=== PATIENT | male | born 1945 | race Hispanic/Latino ===

== ENCOUNTER 2016-10-28 09:39 | Observation (INO) | payer OTHER ==
[~2016-10-28] VITALS: Ht 182.9 cm; Wt 83.0 kg
[~2016-10-28 09:39] MED LIST: CARBAMAZEPIN200 MG PO; LISINOPRIL
--- NOTE | 2016-10-28 10:00 | NUR ---
PT TO ROOM FOR TREATMENT WITH A STEADY GAIT
[2016-10-28] MEDS ORDERED: AMLODIPINE5 MG PO (10:02)
[2016-10-28] MEDS ORDERED: LISINOP/HCTZ1 TA1 PO (10:02)
[2016-10-28 10:47] LABS: HEMATOCRIT 46.1 % (39.0-50.0); IMMATURE GRANULOCYTES 0.3 % (0.0-1.0); MEAN CORPUSCULAR HGB 30.9 pG CALC (26.0-32.0); MEAN CORPUSCULAR HGB CONC 34.7 g/L CALC (32.0-36.0); NEUT# 13.9 thou/uL (1.82-7.42); RED BLOOD COUNT 5.18 mill/uL (4.70-6.10); RED CELL DISTRI WIDTH 13.1 % (11.5-15.5)
[2016-10-28 11:03] LABS: ALBUMIN 4.4 g/dL (3.2-5.0); ALKALINE PHOSPHATASE 104 u/l (38-126); ANION GAP 14 (6-22 (CALC)); BILIRUBIN, TOTAL 0.4 mg/dL (0.0-1.4); BUN 18 mg/dL (8-23); BUN/CREATININE RATIO 18 (12-20 (CALC)); CALCIUM 9.3 mg/dL (8.4-10.2); CARBON DIOXIDE 28 mmol/l (22-30); CHLORIDE 103 mmol/l (95-108); CREATININE 1.1 mg/dL (0.7-1.3); GFR > 60 ML/MIN (>=60 (CALC)); GFR FOR AFR.AMER. > 60 ML/MIN (>=60 (CALC)); GLUCOSE 120 mg/dL (82-115); SGOT/AST 41 u/l (19-48); SGPT/ALT 40 u/l (11-66); SODIUM 141 mmol/l (137-146); TOTAL PROTEIN 8.2 g/dL (6.3-8.2)
[2016-10-28 11:33] LABS: MYOGLOBIN 652 ng/mL (0 - 121)
--- NOTE | 2016-10-28 12:02 | NUR ---
EDP HAS SUTURED CHIN LACERATION, WELL TOLERATED BY PT. WOUNDS COVERED APPROPRIATELY. FAMILY AT BEDSIDE.
--- NOTE | 2016-10-28 13:07 | NUR ---
PT AND FAMILY AWARE OF PENDING ADMISSION.
[2016-10-28 13:40] LABS: BARBITURATES NEGATIVE (NEGATIVE); COCAINE NEGATIVE (NEGATIVE); METHADONE NEGATIVE (NEGATIVE); OXCYCODONE NEGATIVE (NEGATIVE); TETRAHYDROCANNABIONOL NEGATIVE (NEGATIVE); TRICYLIC ANTIDEPRESSANTS NEGATIVE (NEGATIVE)
--- NOTE | 2016-10-28 14:15 | NUR ---
PT ARRIVED FROM ER VIA STRETCHER ACCOMPANIED BY STAFF. IV SITE IS FREE FROM REDNESS OR EDEMA.
--- NOTE | 2016-10-28 14:34 | NUR ---
PT TAKEN TO FLOOR, REPORT WAS TO
--- NOTE | 2016-10-28 15:00 | NUR ---
ASSESSMENT IS COMPLETED: PT IS UPPER SORBIAN SPEAKING MOSTLY UNDERSTANDS SOME WORDS. OTHERWISE THE ANSWER IS " I DON'T REMEMBER". FACE HAS SOME SWELLING NOTED. BANDAID ON CHIN IS CDI. CONTINUE TO OSBERVE AND MONITOR.
[2016-10-28 15:19] VITALS: BP 124/71
[2016-10-28 16:00] VITALS: BP 126/66
--- NOTE | 2016-10-28 18:21 | NUR ---
PT IS RELAXING IN BED WITH NO DISTRESS NOTED. IV SITE IS FREE FROM REDNES OR EDEMA
[2016-10-28 19:00] VITALS: BP 103/62
--- NOTE | 2016-10-28 19:00 | NUR ---
PATIENT RESTING IN BED. NO ACUTE DISTRESS NOTED. REPORT RECEIVED FROM OFF GOING NURSE.
[2016-10-28 19:18] VITALS: BP 117/73
[2016-10-28 23:43] VITALS: BP 103/62
--- NOTE | 2016-10-29 | NUR ---
PATIENT RESTING COMFORTABLY AT THIS TIME. NO ACUTE DISTRESS NOTED.
[2016-10-29 03:35] VITALS: BP 94/61
--- NOTE | 2016-10-29 04:00 | NUR ---
PATIENT RESTED WEL DURING THE NIGHT NO ACUTE DISTRESS NOTED.
[2016-10-29 05:35] LABS: HEMOGLOBIN 14.3 g/dl (14.0-18.0); IMMATURE GRANULOCYTES 0.2 % (0.0-1.0); MEAN CELL VOLUME 89.6 fL CALC (80.0-100.0); MEAN CORPUSCULAR HGB 30.5 pG CALC (26.0-32.0); NEUT# 4.3 thou/uL (1.82-7.42); RED BLOOD COUNT 4.69 mill/uL (4.70-6.10); RED CELL DISTRI WIDTH 13.2 % (11.5-15.5)
[2016-10-29 06:01] LABS: ANION GAP 13 (6-22 (CALC)); BUN 17 mg/dL (8-23); BUN/CREATININE RATIO 18 (12-20 (CALC)); CALCIUM 8.8 mg/dL (8.4-10.2); CARBON DIOXIDE 25 mmol/l (22-30); CHLORIDE 106 mmol/l (95-108); CREATININE 0.9 mg/dL (0.7-1.3); GFR > 60 ML/MIN (>=60 (CALC)); GFR FOR AFR.AMER. > 60 ML/MIN (>=60 (CALC)); GLUCOSE 101 mg/dL (82-115); POTASSIUM 4.1 mmol/l (3.5-5.1); SODIUM 140 mmol/l (137-146)
--- NOTE | 2016-10-29 07:00 | NUR ---
RECEIVED BEDSIDE REPORT FROM MARIELY SIMMONS. PT RESTING ON LEFT SIDE WITH EYES CLOSED. RESPS EVEN AND UNLABORED ON ROOM AIR, TELE MONITOR IN PLACE. DENEIS PAIN OR DISCOMFORT. PLAN OF CARE DISCUSSED. SAFETY PRECAUTIONS REINFORCED. BED PADDED FOR SEIZURE PRECAUTIONS. BED IN LOWEST POSITION WITH WHEELS LOCKED. CALL LIGHT WITHIN REACH. WILL CONTINUE TO MONITOR.
--- NOTE | 2016-10-29 08:25 | NUR ---
DR WILSON IN TO SEE PT WITH MANAGER HIGHW[address], NEW ORDERS RECEIVED.
[2016-10-29 08:33] VITALS: BP 110/68
[2016-10-29 08:38] VITALS: BP 110/68
[2016-10-29] MEDS ORDERED: LEVETIRACETAM500 MG PO (10:03)
--- NOTE | 2016-10-29 13:18 | NUR ---
RESTING IN SUPINE POSITION. RESPS EVEN AND UNLABORED ON ROOM AIR, TELE MONITOR IN PLACE. SUTURES TO CHIN CDI. DENIES PAIN OR DISCOMFORT. ALL NEEDS MET. CALL LIGHT WITHIN REACH. WILL CONTINUE TO MONITOR.
--- NOTE | 2016-10-29 14:40 | NUR ---
Discharge instructions given. Patient verbalizes understanding of same. Discharged in stable condition via Wheelchair to Home with family. All belongings sent with pt.
== END 2016-10-29 14:00 | disposition home or self-care (01) | DRG 101 ==
LOC: ENPENDDIS → ED 09:39 → ED-I 11:33 → ED 12:44 → MS2 12:45
PROVIDERS: Emergency Medicine; ADMIT Internal Medicine; ATTEND Internal Medicine
PROC: 0HQ1XZZ Repair Face Skin, External Approach (ICD-10-PCS; principal; 2016-10-28)
DX: G40.409 Other generalized epilepsy and epileptic syndromes, not intractable, without status epilepticus (principal); I10 Essential (primary) hypertension; S01.81XA Laceration without foreign body of other part of head, initial encounter; E78.5 Hyperlipidemia, unspecified; W18.39XA Other fall on same level, initial encounter; Y92.009 Unspecified place in unspecified non-institutional (private) residence as the place of occurrence of the external cause; Z79.899 Other long term (current) drug therapy
CPT/HCPCS: G0378; J1650

== ENCOUNTER 2017-03-04 08:57 | Emergency (ER) | payer SELFPAY ==
[~2017-03-04] VITALS: Ht 172.7 cm; Wt 84.0 kg
[~2017-03-04 08:57] MED LIST changes: +AMLODIPINE5 MG PO; +LEVETIRACETAM500 MG PO; +LISINOP/HCTZ1 TA1 PO
[2017-03-04 09:26] LABS: HEMATOCRIT 43.8 % (39.0-50.0); HEMOGLOBIN 15.1 g/dl (14.0-18.0); IMMATURE GRANULOCYTES 0.5 % (0.0-1.0); MEAN CELL VOLUME 88.5 fL CALC (80.0-100.0); MEAN CORPUSCULAR HGB 30.5 pG CALC (26.0-32.0); MEAN CORPUSCULAR HGB CONC 34.5 g/L CALC (32.0-36.0); NEUT# 6.52 thou/uL (1.82-7.42); RED BLOOD COUNT 4.95 mill/uL (4.70-6.10); RED CELL DISTRI WIDTH 13.5 % (11.5-15.5)
[2017-03-04 09:45] LABS: ALBUMIN 4.5 g/dL (3.2-5.0); ALKALINE PHOSPHATASE 108 u/l (38-126); ANION GAP 19 (6-22 (CALC)); BILIRUBIN, TOTAL 0.4 mg/dL (0.0-1.4); BUN 17 mg/dL (8-23); BUN/CREATININE RATIO 18 (12-20 (CALC)); CALCIUM 9.5 mg/dL (8.4-10.2); CARBON DIOXIDE 18 mmol/l (22-30); CHLORIDE 104 mmol/l (95-108); ETHYL ALCOHOL 0 mg/dl (0-30); GFR > 60 ML/MIN (>=60 (CALC)); GFR FOR AFR.AMER. > 60 ML/MIN (>=60 (CALC)); GLUCOSE 147 mg/dL (82-115); SGOT/AST 24 u/l (19-48); SGPT/ALT 35 u/l (11-66); SODIUM 137 mmol/l (137-146); TOTAL PROTEIN 7.5 g/dL (6.3-8.2)
[2017-03-04 09:55] LABS: MYOGLOBIN 189 ng/mL (0 - 121)
[2017-03-04 10:10] LABS: URINE BILIRUBIN - DIPSTICK NEGATIVE (NEGATIVE); URINE BLOOD DIPSTICK TRACE-INTACT (NEGATIVE); URINE CLARITY CLEAR; URINE COLOR YELLOW; URINE GLUCOSE - DIPSTICK NEGATIVE (NEGATIVE); URINE KETONE NEGATIVE (NEGATIVE); URINE LEUK ESTERASE NEGATIVE (NEGATIVE); URINE NITRITE - DIPSTICK NEGATIVE (Negative); URINE PROTEIN - DIPSTICK 30 mg/dL (NEG-TRACE); URINE SPECIFIC GRAVITY 1.025; URINE UROBILINOGEN - DIPSTICK 0.2 E.U./dL (0.2)
[2017-03-04 10:16] LABS: BARBITURATES NEGATIVE (NEGATIVE); COCAINE NEGATIVE (NEGATIVE); METHADONE NEGATIVE (NEGATIVE); OXCYCODONE NEGATIVE (NEGATIVE); TETRAHYDROCANNABIONOL NEGATIVE (NEGATIVE); TRICYLIC ANTIDEPRESSANTS NEGATIVE (NEGATIVE)
[2017-03-04 10:37] LABS: URINE SQUAMOUS EPITHELIAL CELL FEW EPI/hpf (0-FEW)
[2017-03-04 14:13] VITALS: BP 114/49
== END 2017-03-04 14:14 | disposition home or self-care (01) | DRG 101 ==
LOC: ED 08:57
PROVIDERS: Emergency Medicine
DX: G40.909 Epilepsy, unspecified, not intractable, without status epilepticus (principal); R00.0 Tachycardia, unspecified
CPT/HCPCS: J1953

== ENCOUNTER 2017-04-29 07:12 | Emergency (ER) | payer MEDICAID ==
[~2017-04-29] VITALS: Ht 172.7 cm; Wt 90.0 kg
[2017-04-29 08:04] LABS: HEMATOCRIT 42.9 % (39.0-50.0); HEMOGLOBIN 14.9 g/dl (14.0-18.0); IMMATURE GRANULOCYTES 0.4 % (0.0-1.0); MEAN CELL VOLUME 87.9 fL CALC (80.0-100.0); MEAN CORPUSCULAR HGB 30.5 pG CALC (26.0-32.0); MEAN CORPUSCULAR HGB CONC 34.7 g/L CALC (32.0-36.0); NEUT# 9.73 thou/uL (1.82-7.42); RED BLOOD COUNT 4.88 mill/uL (4.70-6.10); RED CELL DISTRI WIDTH 13.8 % (11.5-15.5)
[2017-04-29 08:23] LABS: ALBUMIN 4.2 g/dL (3.2-5.0); ALKALINE PHOSPHATASE 111 u/l (38-126); ANION GAP 16 (6-22 (CALC)); BILIRUBIN, TOTAL 0.7 mg/dL (0.0-1.4); BUN 16 mg/dL (8-23); BUN/CREATININE RATIO 16 (12-20 (CALC)); CALCIUM 9.1 mg/dL (8.4-10.2); CARBON DIOXIDE 22 mmol/l (22-30); CHLORIDE 106 mmol/l (95-108); ETHYL ALCOHOL 0 mg/dl (0-30); GFR > 60 ML/MIN (>=60 (CALC)); GFR FOR AFR.AMER. > 60 ML/MIN (>=60 (CALC)); GLUCOSE 130 mg/dL (82-115); POTASSIUM 3.6 mmol/l (3.5-5.1); SGOT/AST 23 u/l (19-48); SGPT/ALT 33 u/l (11-66); SODIUM 141 mmol/l (137-146); TOTAL PROTEIN 7.7 g/dL (6.3-8.2)
[2017-04-29 08:34] LABS: MYOGLOBIN 279 ng/mL (0 - 121)
[2017-04-29 10:29] LABS: URINE BILIRUBIN - DIPSTICK NEGATIVE (NEGATIVE); URINE BLOOD DIPSTICK NEGATIVE (NEGATIVE); URINE CLARITY CLEAR; URINE COLOR YELLOW; URINE GLUCOSE - DIPSTICK NEGATIVE (NEGATIVE); URINE KETONE NEGATIVE (NEGATIVE); URINE LEUK ESTERASE NEGATIVE (NEGATIVE); URINE NITRITE - DIPSTICK NEGATIVE (Negative); URINE PROTEIN - DIPSTICK NEGATIVE (NEG-TRACE); URINE SPECIFIC GRAVITY >=1.030; URINE UROBILINOGEN - DIPSTICK 0.2 E.U./dL (0.2)
[2017-04-29 10:39] LABS: BARBITURATES NEGATIVE (NEGATIVE); COCAINE NEGATIVE (NEGATIVE); METHADONE NEGATIVE (NEGATIVE); OXCYCODONE NEGATIVE (NEGATIVE); TETRAHYDROCANNABIONOL NEGATIVE (NEGATIVE); TRICYLIC ANTIDEPRESSANTS NEGATIVE (NEGATIVE)
[2017-04-29 11:33] VITALS: BP 129/67
== END 2017-04-29 11:25 | disposition home or self-care (01) | DRG 101 ==
LOC: ED 07:12
PROVIDERS: Emergency Medicine
DX: G40.909 Epilepsy, unspecified, not intractable, without status epilepticus (principal); I10 Essential (primary) hypertension; E78.5 Hyperlipidemia, unspecified; Z91.14 Patient's other noncompliance with medication regimen
CPT/HCPCS: J1953

== ENCOUNTER 2017-06-07 08:22 | Emergency (ER) | payer SELFPAY ==
[~2017-06-07] VITALS: Ht 172.7 cm; Wt 110.0 kg
[2017-06-07 09:06] LABS: HEMOGLOBIN 15.8 g/dl (14.0-18.0); IMMATURE GRANULOCYTES 0.4 % (0.0-1.0); MEAN CELL VOLUME 88.8 fL CALC (80.0-100.0); MEAN CORPUSCULAR HGB 30.5 pG CALC (26.0-32.0); MEAN CORPUSCULAR HGB CONC 34.3 g/L CALC (32.0-36.0); NEUT# 10.28 thou/uL (1.82-7.42); RED BLOOD COUNT 5.18 mill/uL (4.70-6.10); RED CELL DISTRI WIDTH 12.6 % (11.5-15.5)
[2017-06-07 09:46] LABS: ALBUMIN 4.2 g/dL (3.2-5.0); ALKALINE PHOSPHATASE 120 u/l (38-126); ANION GAP 15 (6-22 (CALC)); BILIRUBIN, TOTAL 0.5 mg/dL (0.0-1.4); BUN 14 mg/dL (8-23); BUN/CREATININE RATIO 16 (12-20 (CALC)); CALCIUM 9.6 mg/dL (8.4-10.2); CARBON DIOXIDE 23 mmol/l (22-30); CHLORIDE 107 mmol/l (95-108); CREATININE 0.9 mg/dL (0.7-1.3); GFR > 60 ML/MIN (>=60 (CALC)); GFR FOR AFR.AMER. > 60 ML/MIN (>=60 (CALC)); GLUCOSE 133 mg/dL (82-115); POTASSIUM 4.2 mmol/l (3.5-5.1); SGOT/AST 22 u/l (19-48); SGPT/ALT 32 u/l (11-66); SODIUM 140 mmol/l (137-146); TOTAL PROTEIN 7.2 g/dL (6.3-8.2)
[2017-06-07] MEDS ORDERED: KEPPRA1000 MG PO (09:54)
[2017-06-07 10:05] VITALS: BP 150/92
== END 2017-06-07 10:02 | disposition home or self-care (01) | DRG 101 ==
LOC: ED 08:22
PROVIDERS: Emergency Medicine
DX: G40.909 Epilepsy, unspecified, not intractable, without status epilepticus (principal); I10 Essential (primary) hypertension; E78.5 Hyperlipidemia, unspecified
CPT/HCPCS: J1953

== ENCOUNTER 2017-07-16 13:49 | Observation (INO) | payer SELFPAY ==
[~2017-07-16] VITALS: Ht 172.7 cm; Wt 81.5 kg
[~2017-07-16 13:49] MED LIST changes: +KEPPRA1000 MG PO
--- NOTE | 2017-07-16 14:05 | NUR ---
PT TO ROOM VIA WC STOOD AND TRANSFERRED TO STRETCHER . MONITORING EQUIPMENT EXPLAINED AND APPLIED RAMIRO AT BEDSIDE
[2017-07-16] MEDS ORDERED: LISINOPRIL10 MG PO (14:06)
[2017-07-16] MEDS ORDERED: HYDROCHLOROT25 MG PO (14:06)
--- NOTE | 2017-07-16 14:45 | NUR ---
PT RESTING FAMILY MEMBER REMAINS AT BEDSIDE, OFFERS NO NEW COMPLAINTS,
[2017-07-16 14:49] LABS: HEMATOCRIT 47.5 % (39.0-50.0); HEMOGLOBIN 16.4 g/dl (14.0-18.0); IMMATURE GRANULOCYTES 0.5 % (0.0-1.0); MEAN CELL VOLUME 85.7 fL CALC (80.0-100.0); MEAN CORPUSCULAR HGB 29.6 pG CALC (26.0-32.0); MEAN CORPUSCULAR HGB CONC 34.5 g/L CALC (32.0-36.0); NEUT# 14.05 thou/uL (1.82-7.42); RED BLOOD COUNT 5.54 mill/uL (4.70-6.10); RED CELL DISTRI WIDTH 12.4 % (11.5-15.5)
[2017-07-16 15:08] LABS: ALBUMIN 4.5 g/dL (3.2-5.0); ALKALINE PHOSPHATASE 128 u/l (38-126); ANION GAP 21 (6-22 (CALC)); BILIRUBIN, TOTAL 0.3 mg/dL (0.0-1.4); BUN 22 mg/dL (8-23); BUN/CREATININE RATIO 21 (12-20 (CALC)); CALCIUM 10.1 mg/dL (8.4-10.2); CARBON DIOXIDE 19 mmol/l (22-30); CHLORIDE 104 mmol/l (95-108); CREATININE 1.1 mg/dL (0.7-1.3); GFR > 60 ML/MIN (>=60 (CALC)); GFR FOR AFR.AMER. > 60 ML/MIN (>=60 (CALC)); GLUCOSE 128 mg/dL (82-115); POTASSIUM 3.9 mmol/l (3.5-5.1); SGOT/AST 23 u/l (19-48); SGPT/ALT 30 u/l (11-66); SODIUM 141 mmol/l (137-146); TOTAL PROTEIN 7.9 g/dL (6.3-8.2)
--- NOTE | 2017-07-16 15:36 | NUR ---
PT RESTING, NO NEW COMPLAINTS, CALL PEREZ WITHIN REACH, FAMILY MEMBER REMAINS AT BEDSIDE
--- NOTE | 2017-07-16 16:00 | NUR ---
PT WAS LAYING IN BED AND HAD WHAT APPEARED TO BE A SEIZURE. TIGHTNESS OF THE LEGS, AND ARMS, REDNESS ON THE CHEST. HRT RATE WENT TO 160 BP 147/74. PT BIT HIS TONGUE AND STARTED TO BLEED. PHYSICIAN AND ER NURSES CAME TO THE ROOM, AND MEDICATION WAS ADMINISTERED. AT 1605. PT WAS BEING ASSISTED INTO A GOWN AND BECAME A LITTLE COMBATIVE. FAMILY IN THE ROOM STATED ' HE BECOMES CONFUSED AFTER THIS KIND OF EPISODES".
--- NOTE | 2017-07-16 16:11 | NUR ---
PT GIVEN 1 MG OF ATIVAN IV ORDERED BY MD FOR SEIZURE
--- NOTE | 2017-07-16 16:45 | NUR ---
MEDICATED WITH ATIVAN AGAIN ORDERED, PT REMAINS CONFUSED (FAMILY STATES THAT IS NORMAL FOR HIM AFTER A SEIZURE) TELE CONTINUES READING TACHYCARDIC RATE 110-130, MD AWARE, FAMILY BACK AT BEDSIDE
--- NOTE | 2017-07-16 16:51 | NUR ---
FAMILY GONE AT THIS TIME WILL RETURN, AWARE OF POTENTIAL ADMISSION. NO FURTHER SEIZURE ACTIVITY NOTED AT THIS TIME
--- NOTE | 2017-07-16 17:08 | NUR ---
AWARE OF REPEAT LACTIC ACID LEVEL
--- NOTE | 2017-07-16 17:24 | NUR ---
IVF AND DILANTIN IV INFUSING ORDERED, PT RESTING WITHEYES CLOSED, CALL PEREZ WITHIN REACH,
--- NOTE | 2017-07-16 17:35 | NUR ---
MD AWARE OF ELEVATED LACTIC ACID X2 AND RELATES IT TO SEIZURE ACTIVITY AT HOME AND AGAIN AFTER ARRIVAL, IVF GIVEN ORDERED.
--- NOTE | 2017-07-16 18:02 | NUR ---
PT DOZING, HR IMPROVED RATE 80'S BP REMAINS STABLE AND IV DILANTIN CONTINUES ORDERED W/O INCIDENT WELL IVF, CALL PEREZ WITHIN REACH, CONTACTING FOR ADMISSION
[2017-07-16 19:35] LABS: URINE BILIRUBIN - DIPSTICK NEGATIVE (NEGATIVE); URINE BLOOD DIPSTICK TRACE-INTACT (NEGATIVE); URINE COLOR YELLOW; URINE GLUCOSE - DIPSTICK NEGATIVE (NEGATIVE); URINE KETONE NEGATIVE (NEGATIVE); URINE LEUK ESTERASE NEGATIVE (NEGATIVE); URINE NITRITE - DIPSTICK NEGATIVE (Negative); URINE PROTEIN - DIPSTICK NEGATIVE (NEG-TRACE); URINE SPECIFIC GRAVITY 1.025; URINE UROBILINOGEN - DIPSTICK 0.2 E.U./dL (0.2)
--- NOTE | 2017-07-16 19:35 | NUR ---
REPORT TO MARTINE CANTU.
[2017-07-16 19:38] LABS: URINE CLARITY CLEAR
--- NOTE | 2017-07-16 19:44 | NUR ---
PT. UP TO MED/SURG AT THIS TIME.
--- NOTE | 2017-07-16 19:46 | NUR ---
PT TRANSFERRED TO FLOOR VIA STRETCHER ACCOMPANIED BY IRIS ROSENBAUM AND FAMILY;PT AMBULATED TO BEDSIDE WITH WEAK GAIT;PT VOIDED 200CC OF CLEAR/YELLOW URINE;PT ORIENTED TO ROOM AND CALL LIGHT SYSTEM AND VERBALIZES UNDERSTANDING;PT NOTED TO BE MOSTLY [place] SPEAKING BUT GRANDSON AT BEDSIDE TO TRANSLATE;PT REPORTS 3 SEIZURES TODAY TOTAL AND DENIES STOPPING OR CHANGING HIS CURRENT HOME MEDICATIONS;SEIZURE PRECAUTIONS IN PLACE;VS AND WT OBTAINED;#20G TO LAC INFUSING IV KEPPRA AT THIS TIME,SITE APPEARS HEALTHY AND FREE FROM REDDNESS;RESPIRATIONS EVEN AND UNLABORED ON RA;PT A&O X2,PT IS ABLE TO PORVIDED HIS ,NAME AND PLACE;PT RE-ORIENTED TO TIME;TELE MONITOR IN PLACE;SKIN INTACT;PT DENIES ANY PAIN AND IS EDUCATED ON PAIN SCALE AND REPORTING;FALL PRECAUTIONS IN PLACE WITH BED IN THE LOWEST AND CALL LIGHT IN REACH;WILL CONTINUE TO MONITOR
[2017-07-16 20:00] VITALS: BP 128/72
--- NOTE | 2017-07-16 21:30 | NUR ---
NORMA JUNIOR ([facility]) #[phone]
--- NOTE | 2017-07-16 21:30 | NUR ---
PT RESTING QUIETLY IN SEMI FOWLERS POSITION;WOKE PT TO OBTAIN VS;PT VOICES NO COMPLAINTS OF PAIN OR DISCOMFORTS;SEIZURE PRECAUTIONS IN PLACE;TELE MONITOR NOTED;CALL LIGHT IN REACH;WILL CONTINUE TO MONITOR
[2017-07-17 00:18] VITALS: BP 111/70
[2017-07-17 05:14] VITALS: BP 97/62
--- NOTE | 2017-07-17 05:15 | NUR ---
PT APPEARS TO BE SLEEPING WITH EYES CLOSED;PT AWAKES TO VERBAL STIMULI;PT VOICES NO COMPLAINTS OR CONCERNS AT THIS TIME;RESPIRATIONS EVEN AND UNLABORED ON RA;VS OBTAINED;SEIZURE PRECAUTIONS REINFORCED;TELE MONITOR AND FALL PRECAUTIONS IN PLACE;PT EDUCATED TO CALL FOR ASSISTANCE IF NEEDED;CALL LIGHT IN REACH;WILL CONTINUE TO MONITOR
[2017-07-17 06:39] LABS: HEMATOCRIT 42.6 % (39.0-50.0); HEMOGLOBIN 14.9 g/dl (14.0-18.0); MEAN CELL VOLUME 86.1 fL CALC (80.0-100.0); MEAN CORPUSCULAR HGB 30.1 pG CALC (26.0-32.0); RED BLOOD COUNT 4.95 mill/uL (4.70-6.10); RED CELL DISTRI WIDTH 12.6 % (11.5-15.5)
[2017-07-17 07:00] LABS: ANION GAP 15 (6-22 (CALC)); BUN 17 mg/dL (8-23); BUN/CREATININE RATIO 16 (12-20 (CALC)); CALCIUM 9.2 mg/dL (8.4-10.2); CARBON DIOXIDE 23 mmol/l (22-30); CHLORIDE 107 mmol/l (95-108); CREATININE 1.1 mg/dL (0.7-1.3); GFR > 60 ML/MIN (>=60 (CALC)); GFR FOR AFR.AMER. > 60 ML/MIN (>=60 (CALC)); GLUCOSE 107 mg/dL (82-115); POTASSIUM 3.7 mmol/l (3.5-5.1); SODIUM 141 mmol/l (137-146)
[2017-07-17 07:36] VITALS: BP 99/57
--- NOTE | 2017-07-17 10:20 | NUR ---
PT SITTING UP IN THE CHAIR. NO DISTRESS NOTED. IV SITE IS FREE FROM REDNESS OR EDEMA. CONTINUE TO OBSERVE AND MONITOR. ASSESSMENT IS COMPLETED: PT CONTINUES WITH JOSÉ MIGUEL FACE .
[2017-07-17] MEDS ORDERED: KEPPRA750 M2 PO (11:12)
[2017-07-17 11:27] VITALS: BP 104/64
--- NOTE | 2017-07-17 12:30 | NUR ---
PT REMAINS SITTING UP IN THE CHAIR. NO DISTRESS NOTED. IV SITE IS FREE FROM REDNESS OR EDEMA. CONITNUE TO OBSERVE AND MONITOR,
--- NOTE | 2017-07-17 13:10 | NUR ---
IV SITE DISCONITNUED CATHETER INTACT NO REDNESS OR EDEMA. DISCHARGE INSTRUCTIONS GIVEN AND VERBALIZED UNDERSTOOD. Discharge instructions given. Patient verbalizes understanding of same. Discharged in stable condition via Wheelchair to Home with family. All belongings sent with pt.
== END 2017-07-17 13:17 | disposition home or self-care (01) | DRG 101 ==
LOC: ED 13:49 → ED-I 17:51 → ED 18:18 → MS2 18:19
PROVIDERS: Emergency Medicine; ADMIT Internal Medicine; ATTEND Internal Medicine
DX: G40.409 Other generalized epilepsy and epileptic syndromes, not intractable, without status epilepticus (principal); E78.5 Hyperlipidemia, unspecified; I10 Essential (primary) hypertension
CPT/HCPCS: G0378; J1953; J2060

== ENCOUNTER 2017-08-29 17:28 | Emergency (ER) | payer SELFPAY ==
[~2017-08-29] VITALS: Ht 172.7 cm; Wt 80.0 kg
[~2017-08-29 17:28] MED LIST changes: +HYDROCHLOROT25 MG PO; +KEPPRA750 M2 PO; +LISINOPRIL10 MG PO
[2017-08-29 17:55] LABS: HEMATOCRIT 46.3 % (39.0-50.0); HEMOGLOBIN 15.7 g/dl (14.0-18.0); IMMATURE GRANULOCYTES 0.4 % (0.0-1.0); MEAN CELL VOLUME 86.2 fL CALC (80.0-100.0); MEAN CORPUSCULAR HGB 29.2 pG CALC (26.0-32.0); MEAN CORPUSCULAR HGB CONC 33.9 g/L CALC (32.0-36.0); NEUT# 8.97 thou/uL (1.82-7.42); RED BLOOD COUNT 5.37 mill/uL (4.70-6.10); RED CELL DISTRI WIDTH 13.4 % (11.5-15.5)
[2017-08-29] MEDS ORDERED: KEPPRA1000 MG PO (18:02)
[2017-08-29 18:14] LABS: ALBUMIN 4.4 g/dL (3.2-5.0); BILIRUBIN, TOTAL 0.5 mg/dL (0.0-1.4); CALCIUM 10.3 mg/dL (8.4-10.2); CREATININE 1.4 mg/dL (0.7-1.3); POTASSIUM 4.3 mmol/l (3.5-5.1); TOTAL PROTEIN 7.4 g/dL (6.3-8.2)
[2017-08-29 19:35] VITALS: BP 122/74
== END 2017-08-29 19:37 | disposition home or self-care (01) | DRG 101 ==
LOC: ED 17:28
PROVIDERS: Emergency Medicine
DX: G40.909 Epilepsy, unspecified, not intractable, without status epilepticus (principal); S01.111A Laceration without foreign body of right eyelid and periocular area, initial encounter; X58.XXXA Exposure to other specified factors, initial encounter
CPT/HCPCS: J1953; J2060

== ENCOUNTER 2017-10-13 08:35 | Emergency (ER) | payer OTHER ==
[~2017-10-13] VITALS: Ht 172.7 cm; Wt 70.0 kg
[2017-10-13] MEDS ORDERED: KLONOPIN0.5 M1 PO (08:56)
[2017-10-13 09:06] LABS: HEMATOCRIT 44.6 % (39.0-50.0); HEMOGLOBIN 15.3 g/dl (14.0-18.0); IMMATURE GRANULOCYTES 0.4 % (0.0-1.0); MEAN CELL VOLUME 86.6 fL CALC (80.0-100.0); MEAN CORPUSCULAR HGB 29.7 pG CALC (26.0-32.0); MEAN CORPUSCULAR HGB CONC 34.3 g/L CALC (32.0-36.0); NEUT# 10.77 thou/uL (1.82-7.42); RED BLOOD COUNT 5.15 mill/uL (4.70-6.10)
[2017-10-13 09:28] LABS: ALBUMIN 4.1 g/dL (3.2-5.0); ALKALINE PHOSPHATASE 131 u/l (38-126); ANION GAP 15 (6-22 (CALC)); BILIRUBIN, TOTAL 0.3 mg/dL (0.0-1.4); BUN 18 mg/dL (8-23); BUN/CREATININE RATIO 14 (12-20 (CALC)); CARBON DIOXIDE 25 mmol/l (22-30); CHLORIDE 106 mmol/l (95-108); CREATININE 1.2 mg/dL (0.7-1.3); ETHYL ALCOHOL 0 mg/dl (0-30); GFR 59 ML/MIN (>=60 (CALC)); GFR FOR AFR.AMER. > 60 ML/MIN (>=60 (CALC)); POTASSIUM 4.1 mmol/l (3.5-5.1); SGOT/AST 21 u/l (19-48); SGPT/ALT 29 u/l (11-66); SODIUM 142 mmol/l (137-146)
[2017-10-13 10:47] LABS: URINE BILIRUBIN - DIPSTICK NEGATIVE (NEGATIVE); URINE BLOOD DIPSTICK NEGATIVE (NEGATIVE); URINE COLOR YELLOW; URINE GLUCOSE - DIPSTICK NEGATIVE (NEGATIVE); URINE KETONE NEGATIVE (NEGATIVE); URINE LEUK ESTERASE NEGATIVE (NEGATIVE); URINE NITRITE - DIPSTICK NEGATIVE (Negative); URINE PROTEIN - DIPSTICK NEGATIVE (NEG-TRACE); URINE SPECIFIC GRAVITY 1.025; URINE UROBILINOGEN - DIPSTICK 0.2 E.U./dL (0.2)
[2017-10-13 10:56] LABS: BARBITURATES NEGATIVE (NEGATIVE); COCAINE NEGATIVE (NEGATIVE); METHADONE NEGATIVE (NEGATIVE); OXCYCODONE NEGATIVE (NEGATIVE); TETRAHYDROCANNABIONOL NEGATIVE (NEGATIVE); TRICYLIC ANTIDEPRESSANTS NEGATIVE (NEGATIVE); URINE CLARITY CLEAR
[2017-10-13 11:05] VITALS: BP 120/71
== END 2017-10-13 11:18 | disposition home or self-care (01) | DRG 101 ==
LOC: ED 08:35
PROVIDERS: Emergency Medicine
PROC: 0HQ1XZZ Repair Face Skin, External Approach (ICD-10-PCS; principal; 2017-10-13)
DX: G40.909 Epilepsy, unspecified, not intractable, without status epilepticus (principal); R94.31 Abnormal electrocardiogram [ECG] [EKG]; S01.81XA Laceration without foreign body of other part of head, initial encounter; W22.8XXA Striking against or struck by other objects, initial encounter; X58.XXXA Exposure to other specified factors, initial encounter; Y92.009 Unspecified place in unspecified non-institutional (private) residence as the place of occurrence of the external cause

== ENCOUNTER 2022-07-14 08:17 | Inpatient (IN) | payer MEDICARE ==
[~2022-07-14] VITALS: Ht 172.7 cm; Wt 72.0 kg
[2022-07-14] VITALS (28 sets, daily range): BP systolic 115–164; BP diastolic 51–98
[~2022-07-14 08:17] MED LIST changes: +KLONOPIN0.5 M1 PO
[2022-07-14] MEDS ORDERED: ALLOPURINOL100 MG PO (08:41)
[2022-07-14] MEDS ORDERED: LEVOTHYROXIN50 MCG PO (08:41)
[2022-07-14] MEDS ORDERED: VALPROIC ACD250 M1 PO (08:42)
[2022-07-14] MEDS ORDERED: LEVETIRACETAM750 M1 PO (08:43)
[2022-07-14 09:22] LABS: URINE BILIRUBIN - DIPSTICK NEGATIVE (NEGATIVE); URINE BLOOD DIPSTICK NEGATIVE (NEGATIVE); URINE COLOR YELLOW; URINE GLUCOSE - DIPSTICK NEGATIVE (NEGATIVE); URINE KETONE 15 mg/dL (NEGATIVE); URINE LEUK ESTERASE NEGATIVE (NEGATIVE); URINE PH 5.5 (4.5-8.0); URINE PROTEIN - DIPSTICK NEGATIVE (NEG-TRACE); URINE SPECIFIC GRAVITY 1.025; URINE UROBILINOGEN - DIPSTICK 0.2 E.U./dL (0.2)
[2022-07-14 09:24] LABS: URINE NITRITE - DIPSTICK NEGATIVE (Negative)
[2022-07-14 09:24] LABS: INTERNATIONAL NORMALIZED RATIO 1.1 RATIO (0.7-1.3)
[2022-07-14 09:30] LABS: ALKALINE PHOSPHATASE 80 u/l (38-126); BILIRUBIN, TOTAL 0.3 mg/dL (0.0-1.4); BUN 14 mg/dL (8-23); BUN/CREATININE RATIO 17 (12-20 (CALC)); CHLORIDE 103 mmol/l (95-108); CREATININE 0.8 mg/dL (0.7-1.3); GFR FOR AFR.AMER. > 60 ML/MIN (>=60 (CALC)); GFR OTHER RACES > 60 ML/MIN (>=60 (CALC)); LIPASE 50 u/l (23-300); POTASSIUM 3.9 mmol/l (3.5-5.1); SGOT/AST 30 u/l (19-48); SODIUM 138 mmol/l (137-146)
[2022-07-14 09:31] LABS: ANION GAP 18 (6-22 (CALC)); CARBON DIOXIDE 21 mmol/l (22-30); MAGNESIUM 1.4 mg/dL (1.6-2.3)
[2022-07-14 09:37] LABS: HEMOGLOBIN 15.4 g/dl (14.0-18.0); IMMATURE GRANULOCYTES 0.3 % (0.0-5.0); MEAN CELL VOLUME 91.3 fL CALC (80.0-100.0); NEUT# 7.73 thou/uL (1.82-7.42); RED BLOOD COUNT 4.82 mill/uL (4.70-6.10); RED CELL DISTRI WIDTH 13.1 % (11.5-15.5)
[2022-07-15] VITALS (29 sets, daily range): BP systolic 88–147; BP diastolic 59–84
[2022-07-15 05:49] LABS: HEMATOCRIT 42.8 % (39.0-50.0); HEMOGLOBIN 15.1 g/dl (14.0-18.0); IMMATURE GRANULOCYTES 0.7 % (0.0-5.0); MEAN CELL VOLUME 91.3 fL CALC (80.0-100.0); MEAN CORPUSCULAR HGB 32.2 pG CALC (26.0-32.0); MEAN CORPUSCULAR HGB CONC 35.3 g/dL CAL (32.0-36.0); NEUT# 6.71 thou/uL (1.82-7.42); RED BLOOD COUNT 4.69 mill/uL (4.70-6.10); RED CELL DISTRI WIDTH 13.2 % (11.5-15.5)
[2022-07-15 06:16] LABS: ALBUMIN 3.3 g/dL (3.2-5.0); ALKALINE PHOSPHATASE 68 u/l (38-126); ANION GAP 10 (6-22 (CALC)); BILIRUBIN, TOTAL 0.4 mg/dL (0.0-1.4); BUN 9 mg/dL (8-23); BUN/CREATININE RATIO 12 (12-20 (CALC)); C-REACTIVE PROTEIN 8.3 mg/dL (0-0.9); CARBON DIOXIDE 23 mmol/l (22-30); CHLORIDE 106 mmol/l (95-108); CREATININE 0.7 mg/dL (0.7-1.3); GFR FOR AFR.AMER. > 60 ML/MIN (>=60 (CALC)); GFR OTHER RACES > 60 ML/MIN (>=60 (CALC)); POTASSIUM 3.9 mmol/l (3.5-5.1); SGOT/AST 49 u/l (19-48); SODIUM 135 mmol/l (137-146); TOTAL PROTEIN 6.5 g/dL (6.3-8.2)
== END 2022-07-15 14:30 | disposition short-term general hospital (02) | DRG 178 ==
LOC: ED 08:17 → ED-I 09:40 → ED 10:13 → ICU 10:14
PROVIDERS: Family Medicine; ADMIT Internal Medicine; ATTEND Internal Medicine
DX: U07.1 COVID-19 (principal); E87.20 Acidosis, unspecified; G40.901 Epilepsy, unspecified, not intractable, with status epilepticus; I10 Essential (primary) hypertension; E03.9 Hypothyroidism, unspecified
CPT/HCPCS: J1650; J1953; J2060; J3475